=== PATIENT | male | born 1970 | race Caucasian/White ===

== ENCOUNTER 2017-07-02 13:46 | Emergency (ER) | payer BC ==
[2017-07-02 14:30] VITALS: BP 125/85
--- NOTE | 2017-07-02 14:52 | UC ---
FLU HPI - HPI Summary HPI Summary: had uri for 2 weeks--past 2-3 days has had cheat congestion and pain with cough , body aches and fevers - History of Current Complaint Chief Complaint: UCRespiratory Stated Complaint: FEVER/COUGH Time Seen by Provider: 07/02/17 14:30 Hx Obtained From: Patient Onset/Duration: Sudden Onset, Lasting Days, Still Present Severity Currently: Moderate Severity Initially: Moderate Associated Signs & Symptoms: Positive: Fever, Myalgia, Cough - Allergy/Home Medications Allergies/Adverse Reactions: Allergies Allergy/AdvReac Type Severity Reaction Status Date / Time No Known Allergies Allergy Verified 07/02/17 14:30 PMH/Surg Hx/FS Hx/Imm Hx Previously Healthy: No GI/ History: Other - Crohns Disease Other GI/ History: Crohns Disease - Surgical History Surgical History: Yes Surgery Procedure, Year, and Place: hernia, pyloric stenosis - Family History Known Family History: Positive: None - Social History Occupation: Employed Full-time Lives: With Family Alcohol Use: Rare Substance Use Type: None Smoking Status (MU): Never Smoked Tobacco Review of Systems Constitutional: Fever, Chills, Fatigue Skin: Negative Eyes: Negative ENT: Negative Respiratory: Cough Cardiovascular: Negative Gastrointestinal: Negative Genitourinary: Negative Motor: Negative Neurovascular: Negative Musculoskeletal: Negative Neurological: Negative Psychological: Negative Is Patient Immunocompromised?: No All Other Systems Reviewed And Are Negative: Yes Physical Exam Triage Information Reviewed: Yes Appearance: No Pain Distress, Well-Nourished, Ill-Appearing - mild Vital Signs: Initial Vital Signs Temp 99.3 F 07/02/17 14:25 Pulse 98 07/02/17 14:25 Resp 16 07/02/17 14:25 BP 125/85 07/02/17 14:25 Pulse Ox 99 07/02/17 14:25 Vital Signs Reviewed: Yes Eye Exam: Normal Eyes: Positive: Conjunctiva Clear ENT Exam: Normal ENT: Positive: Normal ENT inspection, Hearing grossly normal, Pharyngeal erythema, TMs normal, Uvula midline. Negative: Nasal congestion, Tonsillar swelling, Trismus, Muffled voice, Hoarse voice, Sinus tenderness Dental Exam: Normal Neck exam: Normal Neck: Positive: Supple, Nontender, No Lymphadenopathy Respiratory Exam: Normal Respiratory: Positive: Chest non-tender, Lungs clear, Normal breath sounds, No respiratory distress, No accessory muscle use Cardiovascular Exam: Normal Cardiovascular: Positive: RRR, No Murmur, Pulses Normal, Brisk Capillary Refill Musculoskeletal Exam: Normal Musculoskeletal: Positive: Strength Intact, ROM Intact, No Edema Neurological Exam: Normal Neurological: Positive: Alert, Muscle Tone Normal Psychological Exam: Normal Skin Exam: Normal Diagnostics - Laboratory Diagnostic Studies Completed/Ordered: Influenza A/B (-) Flu Course/Dx - Course Course Of Treatment: Zithromax, Robitussin with Codiene follow with pcp - Differential Dx/Diagnosis Provider Diagnoses: Bronchitis Discharge - Discharge Plan Condition: Stable Disposition: HOME Prescriptions: Azithromycin TAB* [Zithromax TAB (Z-RICK) 250 mg #6 tabs] 2 tab PO .TODAY, THEN 1 DAILY #1 rick Guaifenesin-Codeine [Guaiatussin AC] 5 - 10 syp PO QID PRN #90 ml MDD 40 PRN Reason: cough Patient Education Materials: Acute Bronchitis (ED) Referrals: [facility] [Outside] - If Needed
== END 2017-07-02 15:10 | disposition home or self-care (01) ==
LOC: UCCORT 13:46
DX: J40 Bronchitis, not specified as acute or chronic (principal)
CPT/HCPCS: 87502; 99212; G0463